=== PATIENT | male | born 1985 | race African-American/Black ===

== ENCOUNTER 2021-04-23 16:34 | Emergency (ER) | payer BC, MEDICAID ==
[2021-04-23] MEDS ORDERED: Fluconazole 100 MG Tab PO STA (17:52)
== END 2021-04-23 18:51 | disposition home or self-care (01) ==
LOC: MW.ED 16:34
DX: B37.0 Candidal stomatitis (principal)
CPT/HCPCS: 36415; 86308; 87389; 99283; A9270

== ENCOUNTER 2021-06-22 07:39 | Emergency (ER) | payer OTHER, MEDICAID ==
[2021-06-22] MEDS ORDERED: Diphtheria,Pertussis(Acell),Tetanus Vaccine 0.5 ML Syringe IM ONE (07:53)
[2021-06-22] MEDS ORDERED: Ibuprofen 600 MG Tab PO ONE (07:53)
== END 2021-06-22 09:24 ==
LOC: MW.ED 07:39
DX: S05.12XA Contusion of eyeball and orbital tissues, left eye, initial encounter (principal); Z23 Encounter for immunization; V49.10XA Passenger injured in collision with unspecified motor vehicles in nontraffic accident, initial encounter; Y92.410 Unspecified street and highway as the place of occurrence of the external cause
CPT/HCPCS: 70450; 72125; 90471; 90715; 99284; A9270